=== PATIENT | male | born 1945 | race Caucasian/White ===

== ENCOUNTER → 2019-05-01 | Outpatient (CLI) | payer MEDICARE ==
[2019-05-01 16:58] LABS: Creatinine Urine 65.5 mg/dL (27.00-270.00); Protein, Urine Quantitative 11.1 mg/dL (0.0-11.9)
[2019-05-01 17:01] LABS: Microalbumin, Urine Quant. 47.7 mg/L (0.000-20.000)
== END | disposition home or self-care (01) ==
LOC: LAB SHORT 14:33 → LAB 14:33
PROVIDERS: Internal Medicine Nephrology
DX: N18.3 Chronic kidney disease, stage 3 (moderate) (principal); D63.1 Anemia in chronic kidney disease; M10.9 Gout, unspecified; N25.81 Secondary hyperparathyroidism of renal origin; E55.9 Vitamin D deficiency, unspecified; E78.00 Pure hypercholesterolemia, unspecified; R76.9 Abnormal immunological finding in serum, unspecified; R94.5 Abnormal results of liver function studies; R94.6 Abnormal results of thyroid function studies; D51.8 Other vitamin B12 deficiency anemias; D52.8 Other folate deficiency anemias; D50.9 Iron deficiency anemia, unspecified
CPT/HCPCS: 81050; 82043; 82570; 84156

== ENCOUNTER 2021-05-18 07:42 | Day surgery (SDC) | payer MEDICARE ==
[~2021-05-18] VITALS: Ht 185.4 cm; Wt 159.0 kg
[~2021-05-18 07:42] MED LIST: ALLO100 PO; BUME1 PO; CYCL10 PO; DABI150C PO; ENTRESTO 24 MG1 EACH PO; GABA300 PO; METHI10 PO; METO50ER PO
--- NOTE | 2021-05-18 11:10 | NUR ---
PT TO RECOVERY ROOM POST PROCEDURE. PT AWAKE AND CONVERSING APPROPRIATELY; DENIES PAIN POST PROCEDURE. MONITOR A FIB 70'S, B/P 131/79, AFEBRILE, SPO2 95% RA. L CHEST-GEN CHANGE SITE NO SWELLING/HEMATOMA, PRESSURE DRSG INTACT. PT TAKING FLUIDS WITHOUT ISSUE.
--- NOTE | 2021-05-18 13:20 | NUR ---
PT AMB TO THE BATHROOM, GAIT STEADY, L CHEST SITE UNCHANGED WITH ACTIVITY.
--- NOTE | 2021-05-18 14:39 | NUR ---
DR LLAMAS HERE TO EVALUATE PT, PRESSURE DRSG REMOVED. PT'S SITE REDRESSED WITH TELFA AND TEGADERM USING STERILE TECHNIQUE.
--- NOTE | 2021-05-18 15:28 | NUR ---
PT TOLERATED 2ND DOSE OF ANCEF. PT DRESSED SELF WITHOUT ISSUE; IV REMOVED CANNULA INTACT. PT RECEIVED DISCHARGE INSTRUCTIONS, MED LIST AND AFTER CARE INSTRUCTIONS; VERBALIZED GOOD UNDERSTANDING. PT'S RIDE WILL NOT BE HERE TILL 1615, REPORT TO FARA HUGHES; ALL QUESTIONS ANSWERED.
--- NOTE | 2021-05-18 15:49 | NUR ---
PT IV DC'D. CATH INTACT. PRESSURE DSG APPLIED. PT DC TO HOME VIA WC. RIDE ARRIVING EARLIER THAN EXPECTED. REBECA.
== END 2021-05-18 15:50 | disposition home or self-care (01) ==
LOC: MHTC 07:42
DX: Z45.02 Encounter for adjustment and management of automatic implantable cardiac defibrillator (principal); I42.8 Other cardiomyopathies; E03.9 Hypothyroidism, unspecified; I12.9 Hypertensive chronic kidney disease with stage 1 through stage 4 chronic kidney disease, or unspecified chronic kidney disease; N18.9 Chronic kidney disease, unspecified; I48.20 Chronic atrial fibrillation, unspecified; E78.5 Hyperlipidemia, unspecified; G47.30 Sleep apnea, unspecified; E66.01 Morbid (severe) obesity due to excess calories; Z68.42 Body mass index [BMI] 45.0-49.9, adult; Z79.01 Long term (current) use of anticoagulants
CPT/HCPCS: 33262; 93005; 93010; 99152; 99153; C1722; J0690; J1644; J2250; J3010; J7030